=== PATIENT | male | born 1965 | race Caucasian/White ===

== ENCOUNTER → 2017-01-31 | Outpatient (CLI) | payer BC, OTHER ==
[~2017-01-31] MED LIST: ASPIR 8181 MG PO; BYSTOLIC 5 MG5 M1 PO; CENTRUM SILVER1 EAC4 PO; GLUCOPHAGE XR500 MG PO; LEVEMIR SUBQ; NOVOLOG100 UNIT/1 SUBQ; PRAVACHOL40 MG PO
== END ==
LOC: ULTRA 14:32
DX: Z01.818 Encounter for other preprocedural examination (principal)

== ENCOUNTER 2017-02-06 06:53 | Inpatient (IN) | payer BC, OTHER ==
[2017-01-31 13:45] LABS: URINE BILIRUBIN NEGATIVE (Negative); URINE BLOOD 1+ (Negative); URINE COLOR YELLOW; URINE GLUCOSE-RANDOM* NEGATIVE (Negative); URINE KETONES NEGATIVE (Negative); URINE LEUKOCYTES-REFLEX NEGATIVE (Negative); URINE PROTEIN (DIPSTICK) 2+ (Negative); URINE UROBILINOGEN 0.2 E.U./dl (0.2-1.0)
[2017-01-31 13:49] LABS: HEMATOCRIT 39.7 % (42.0-52.0); HEMOGLOBIN 13.9 gm/dL (14.0-18.0); MCH 30.7 pg (26.0-34.0); MCHC 35.1 g/dL (28.0-37.0); MCV 87.6 fL (80.0-100.0); RBC 4.53 mil/uL (4.50-6.00); RDW 13.1 % (10.5-14.5); WBC 9.8 thou/uL (4.0-11.0)
[2017-01-31 13:53] LABS: APTT 26.8 Seconds (24.5-32.8)
[2017-01-31 13:56] LABS: ALBUMIN 2.9 g/dL (3.4-5.0); CALCIUM 8.5 mg/dL (8.5-10.1); CREATININE 1.2 mg/dL (0.7-1.3); TOTAL BILIRUBIN 0.4 mg/dL (<0.1-1.0); TOTAL PROTEIN 6.6 g/dL (6.4-8.2)
[2017-01-31 13:58] LABS: CASTS None Seen /LPF (None Seen); CRYSTALS None Seen /LPF (None Seen); SQUAMOUS None Seen /LPF (0-3); URINE RBC None Seen /HPF (0-2); URINE WBC-REFLEX None Seen /HPF (0-5)
[2017-02-06] VITALS (11 sets, daily range): BP systolic 97–142; BP diastolic 57–89
[~2017-02-06] VITALS: Ht 182.9 cm; Wt 115.1 kg
--- NOTE | ~2017-02-06 | HC ---
[facility] [place] [address] CONSULTATION Name: NitinSASHAOMKAR ALDANA J Room #: 208-P [facility] IN ..#: [id number] Admission: 02/06/17 Attend Phys: Waldemar Gill MD Discharge: Date of : 63 Report #: [id number] THIS REPORT FOR: //name// CC: CARLENE Gill REASON FOR CONSULTATION: Elevated creatinine. REASON FOR ADMISSION: Status post endarterectomy. HISTORY OF PRESENT ILLNESS: This is a 51-year-old with past medical history of peripheral arterial disease. He underwent right internal carotid endarterectomy on February 06. He had some issues with left lower extremity weakness and was diagnosed by the Neurology to have a TIA. He has got an extensive past medical history including and not limiting to diabetes mellitus and hypertension. Postoperatively, the patient's creatinine continued to go up to a peak of 2.2. On presentation, his creatinine was 1.2. As it turned out that the patient has some urinary retention and his creatinine is on the trend down after an intermittent catheterization. It was also noted that the patient's blood pressure is on the low side with blood pressure readings down to 89/41. asked me to evaluate the patient due to the acute kidney injury. PAST MEDICAL HISTORY: 1. Diabetes mellitus. 2. Hypertension. 3. Peripheral arterial disease. 4. Status post endarterectomy. 5. Coronary artery disease. 6. TIA. MEDICATIONS: 1. Aspirin. 2. Atorvastatin. 3. Bystolic. 4. Famotidine. 5. Insulin. FAMILY HISTORY: Significant for diabetes mellitus and hypertension. SOCIAL HISTORY: Current smoker. No drug or alcohol abuse. ALLERGIES: No known drug allergies. REVIEW OF SYSTEMS: GENERAL: No fever or chills. CARDIOVASCULAR: No chest pain or palpitation. PULMONARY: No cough or hemoptysis. [facility] [address] [place] [address] CONSULTATION Name: OMKAR CAPONE Room #: 208-P [facility] IN [facility]#: [id number] Admission: 02/06/17 Attend Phys: Waldemar Gill MD Discharge: Date of : 63 Report #: [id number] GASTROINTESTINAL: No nausea or vomiting. GENITOURINARY: Urinary retention. SKIN: No rash or ulcerations. PHYSICAL EXAMINATION: GENERAL: He is alert, oriented, in no apparent distress. VITAL SIGNS: Blood pressure is 140/72. HEAD AND NECK: No jugular venous distention, no bruit, no thyromegaly. CHEST: Clear to auscultation bilaterally. CARDIOVASCULAR: No rub detected. ABDOMEN: Soft, nontender. LOWER EXTREMITIES: +1 edema. LABORATORY DATA: Reviewed. His creatinine is down to 1.7. Potassium is mildly elevated at 5.3. ASSESSMENT, IMPRESSION AND PLAN: 1. Acute kidney injury. 2. Hyperkalemia. 3. Mildly depressed sodium value. 4. Urinary retention. 5. The patient's acute kidney injury is all related to his retention. 6. He did have some low blood pressure readings and I will start on appropriate normal saline. 7. Urology had evaluated the patient. 8. Continue with the bladder scan. 9. P.r.n. intermittent catheterization. 10. Flomax. 11. Creatinine is on the trend down and it should continue to improve. <ELECTRONICALLY SIGNED> By: Greer Tom MD 02/10/17 0744 0726 0820 Greer Tom MD /nt
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
--- NOTE | ~2017-02-06 | EKG ---
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
--- NOTE | ~2017-02-06 | S ---
[facility] [place] [address] SURGICAL PATH RPT PROCEDURE Name: OMKAR CAPONE Room #: 208-P ADM IN M.R.#: [id number] Admission: 02/06/17 Date of : 63 Discharge: Report #: [id number] Path Case #: [id number] PATHOLOGY REPORT COLLECTION DATE: 02/06/2017 RECEIVED DATE: 02/07/2017 SUBMITTING PHYS: Dr. Waldemar Gill OTHER PHYS: Dr. Rocky Barrientos M.D. Dr. Eduardo Miller SPECIMEN(S) RECEIVED: A.Right carotid artery plaque * * * * * * * * * * * * FINAL DIAGNOSIS: "Right carotid artery plaque", endarterectomy: - Calcific atherosclerosis. (CLW:shirley; 02/08/2017) PATHOLOGIST: Amy Gabriel M.D. REPORT ELECTRONICALLY SIGNED BY: Amy Gabriel M.D. DATE/TIME: 02/08/2017 23:42 * * * * * * * * * * * * GROSS PATHOLOGY: The specimen is received in formalin, labeled "Omkar Capone and right carotid artery plaque", is a previously opened tubular segment measuring 3.0 x 0.6 cm in diameter. Upon further sectioning the lumen shows mcbride-white firm plaque with an hemorrhagic focus represents section in A1 after decalcification. (SWS; 02/07/2017) CLINICAL HISTORY: Carotid artery disease INITIAL CPT CODE(S): A; 58012, 61633 Professional services performed by [facility] at [facility] [address], [place] [address] Technical services performed by [facility] at [address] [place] [id number]. [facility] [address] [place] [address] SURGICAL PATH RPT PROCEDURE Name: OMKAR CAPONE Room #: 208-P ADM IN M.R.#: [id number] Admission: 02/06/17 Date of : 63 Discharge: Report #: [id number] Path Case #: [id number] [address] PHONE: [phone] DIRECTOR: Abner Grace M.D. * * * END OF REPORT * * *
--- NOTE | ~2017-02-06 | O ---
[facility] [place] [address] OPERATIVE REPORT Name: OMKAR CAPONE Room #: 150-5 [facility] IN ..#: [id number] Admission: 02/06/17 Attend Phys: Waldemar Gill MD Discharge: Date of : 63 Report #: [id number] THIS REPORT FOR: //name// CC: CARLENE Gill DATE OF SERVICE: 02/06/2017 PREOPERATIVE DIAGNOSIS: Right internal carotid artery stenosis, asymptomatic. FINAL DIAGNOSIS: Right internal carotid artery stenosis, asymptomatic. OPERATIVE PROCEDURE PERFORMED: Right internal carotid endarterectomy. SURGEON: Waldemar Gill MD ELECTRICAL RESEARCH ENGINEER: Rocky Barrientos MD ANESTHESIA: General. OPERATIVE INDICATIONS: The patient is a 51-year-old male who recently presented with evidence of coronary artery disease. The patient was identified as a candidate for coronary bypass grafting. Preoperative evaluation of carotid arteries demonstrated bilateral internal carotid artery stenoses, greater on the right than left and this was followed with angiography showing a significant stenosis on the right. The patient was brought to the operating room now for right internal carotid endarterectomy prior to planned coronary bypass grafting. OPERATIVE SUMMARY: The patient was brought into the operating room, placed on the OR table in supine position. After anesthesia was induced via the general endotracheal route and monitoring lines have been positioned, the patient was prepped and draped in sterile fashion with chlorhexidine. An oblique incision was made anterior to the sternocleidomastoid muscle. Dissection was carried down through the subcutaneous tissues. We ligated and divided the facial vein. We identified the contents of the carotid sheath and dissected free the common internal and external carotid arteries from surrounding tissue. We had to mobilize the hypoglossal nerve. We identified the marginal mandibular branch of the facial nerve and took care not to injure it, although we did have to retract it. Plaque extended up for some distance in this artery and we had to dissect high. We gave heparin at least 10,000 units IV, waited at least 3 minutes. The internal, then common, then external carotid arteries were clamped. We opened with the common carotid arteriotomy, extended up into the internal carotid artery past the most distal plaque. The plaque was dissected free from the surrounding wall. It was amputated proximally. Distally, there was good tapering. We performed an eversion endarterectomy of the external carotid artery. After the plaque was removed, we then debrided all loose fronds from [address] [address] OPERATIVE REPORT Name: OMKAR CAPONE Room #: 150-5 [facility] IN [facility].#: [id number] Admission: 02/06/17 Attend Phys: Waldemar Gill MD Discharge: Date of : 63 Report #: [id number] the vessel wall. This was performed under loupe magnification with irrigation. Once this was satisfactory, we closed the arteriotomy in a single layer without a patch using 6-0 Prolene suture. Prior to completing the closure, the shunt was removed. The site was flushed both retrograde and antegrade. It was irrigated with heparinized saline solution. We de-aired the site by releasing the clamp on the external carotid artery prior to completing the closure and then after the suture was secured, we securely tied. We released the clamp on the common carotid artery and then the internal carotid artery. No bleeding was encountered. A 100 mg of protamine was given to reverse the heparin. Doppler signals were excellent at the common internal and external carotid arteries. Once satisfactory hemostasis was achieved, the wound was closed in multiple layers with absorbable suture. The procedure completed, the patient was taken to the postanesthesia care unit. Neurologic examination is pending at the time of this dictation. <ELECTRONICALLY SIGNED> By: Waldemar Gill MD 02/06/17 1336 1240 1334 Waldemar Gill MD /nt
[2017-02-07] VITALS (16 sets, daily range): BP systolic 85–153; BP diastolic 41–77
[2017-02-07 05:16] LABS: HEMATOCRIT 35.5 % (42.0-52.0); HEMOGLOBIN 12.3 gm/dL (14.0-18.0); MCH 30.2 pg (26.0-34.0); MCHC 34.5 g/dL (28.0-37.0); MCV 87.6 fL (80.0-100.0); RBC 4.06 mil/uL (4.50-6.00); RDW 13.3 % (10.5-14.5); WBC 15.5 thou/uL (4.0-11.0)
[2017-02-07 05:24] LABS: CALCIUM 7.8 mg/dL (8.5-10.1); CREATININE 2.2 mg/dL (0.7-1.3); POTASSIUM 4.8 mmol/L (3.5-5.1)
[2017-02-07 10:15] LABS: CHOLESTEROL 113 mg/dL (<200); HDL CHOLESTEROL 36 mg/dL (>40); LDL CHOLESTEROL 52 mg/dL (<100); TC:HDL 3.1 Ratio (Not establshd); TRIGLYCERIDE 127 mg/dL (<150); VLDL 25 mg/dL (<40)
[2017-02-07 16:43] LABS: ABG SAMPLE TYPE ARTERIAL; BE(vivo) -4.3 mmol/L (-2 to +3); HCO3 19.6 mmol/L (22.0-26.0); O2(CT) 16.4 mL/dL (15.0-23.0); O2Hb 90.3 % (92.0-98.0); PCO2 32.5 mmHg (35.0-45.0); PO2 60.7 mmHg (80.0-100.0); pH 7.398 (7.360-7.450); sO2 91.6 % (92.0-98.0); tCO2 20.6 mmol/L (24.0-30.0)
[2017-02-07 16:44] LABS: STICK SITE R.RADIAL
[2017-02-08 03:47] VITALS: BP 153/85
[2017-02-08 04:24] LABS: CALCIUM 8.5 mg/dL (8.5-10.1); CREATININE 2.1 mg/dL (0.7-1.3); POTASSIUM 5.3 mmol/L (3.5-5.1)
[2017-02-08 08:37] VITALS: BP 153/78
[2017-02-08 14:17] VITALS: BP 140/67
[2017-02-08 19:54] VITALS: BP 154/74
[2017-02-08 23:58] VITALS: BP 142/67
[2017-02-09 03:33] VITALS: BP 142/72
[2017-02-09 04:30] LABS: HEMATOCRIT 37.2 % (42.0-52.0); HEMOGLOBIN 12.4 gm/dL (14.0-18.0); MCH 29.6 pg (26.0-34.0); MCHC 33.4 g/dL (28.0-37.0); MCV 88.7 fL (80.0-100.0); RBC 4.19 mil/uL (4.50-6.00); RDW 13.1 % (10.5-14.5); WBC 11.1 thou/uL (4.0-11.0)
[2017-02-09 04:35] LABS: CALCIUM 8.6 mg/dL (8.5-10.1); CREATININE 1.7 mg/dL (0.7-1.3); POTASSIUM 5.3 mmol/L (3.5-5.1)
[2017-02-09 08:30] VITALS: BP 156/86
[2017-02-09 12:15] VITALS: BP 158/76
[2017-02-09 17:40] VITALS: BP 147/76
[2017-02-09 19:47] VITALS: BP 144/83
[2017-02-09 23:57] VITALS: BP 147/82
[2017-02-10 04:09] VITALS: BP 166/95
[2017-02-10 05:12] LABS: ALBUMIN 3.1 g/dL (3.4-5.0); CALCIUM 8.6 mg/dL (8.5-10.1); CREATININE 1.7 mg/dL (0.7-1.3); PHOSPHORUS 3.8 mg/dL (2.5-4.9); POTASSIUM 5.5 mmol/L (3.5-5.1)
[2017-02-10 08:00] VITALS: BP 166/95
[2017-02-10 12:00] VITALS: BP 159/83
[2017-02-10 16:00] VITALS: BP 159/80
[2017-02-10 19:55] VITALS: BP 175/99
[2017-02-11 00:07] LABS: GLYCOHEMOGLOBIN (HGB A1C) 7.2 % (4.8-5.6)
[2017-02-11 04:14] VITALS: BP 169/93
[2017-02-11 04:53] LABS: ALBUMIN 2.9 g/dL (3.4-5.0); CALCIUM 8.6 mg/dL (8.5-10.1); CREATININE 1.5 mg/dL (0.7-1.3); POTASSIUM 5.1 mmol/L (3.5-5.1)
[2017-02-11 07:40] VITALS: BP 151/81
[2017-02-11 11:15] VITALS: BP 166/83
[2017-02-11] MEDS ORDERED: FLOMAX0.4 MG PO (11:45)
[2017-02-11] MEDS ORDERED: AUGMENTIN 875-1 EACH PO (11:45)
[2017-02-11] MEDS ORDERED: PANTOPRAZOLE SO40 M1 PO (11:45)
[2017-02-11] MEDS ORDERED: ASPIRIN325 PO (11:45)
[2017-02-11] MEDS ORDERED: ULTRA-LIGHT RO1 EACH (11:47)
[2017-02-11] MEDS ORDERED: SPIRIVA INH (12:22)
[2017-02-11 13:26] VITALS: BP 166/83
== END 2017-02-11 14:22 | disposition home health service (06) | DRG 38 ==
LOC: TBA 06:53 → PRE 07:55 → ICU 14:39 → PRE 14:52 → ICU 02-07 07:53 → 2N 02-07 18:26 → ENTRNSPT 02-11 14:06 → EDTRNSPTSTS 02-11 14:13 → 2N 02-11 14:22
PROVIDERS: Hospitalist; Internal Medicine Pulmonary Disease; Nurse Practitioner; Psychiatry & Neurology Neurology; Thoracic Surgery (Cardiothoracic Vascular Surgery)
PROC: 03CK0ZZ Extirpation of Matter from Right Internal Carotid Artery, Open Approach (ICD-10-PCS; principal; 2017-02-06)
DX: I63.131 Cerebral infarction due to embolism of right carotid artery (principal); N17.9 Acute kidney failure, unspecified; J44.0 Chronic obstructive pulmonary disease with (acute) lower respiratory infection; E11.51 Type 2 diabetes mellitus with diabetic peripheral angiopathy without gangrene; K21.9 Gastro-esophageal reflux disease without esophagitis; I25.10 Atherosclerotic heart disease of native coronary artery without angina pectoris; J20.9 Acute bronchitis, unspecified; N40.1 Benign prostatic hyperplasia with lower urinary tract symptoms; R33.8 Other retention of urine; H35.30 Unspecified macular degeneration; E11.65 Type 2 diabetes mellitus with hyperglycemia; E11.621 Type 2 diabetes mellitus with foot ulcer; F17.210 Nicotine dependence, cigarettes, uncomplicated; L97.519 Non-pressure chronic ulcer of other part of right foot with unspecified severity; I95.9 Hypotension, unspecified; E78.5 Hyperlipidemia, unspecified; Z95.820 Peripheral vascular angioplasty status with implants and grafts; Z89.421 Acquired absence of other right toe(s); Z79.84 Long term (current) use of oral hypoglycemic drugs; Z79.82 Long term (current) use of aspirin; Z79.4 Long term (current) use of insulin; Z79.899 Other long term (current) drug therapy; Z80.7 Family history of other malignant neoplasms of lymphoid, hematopoietic and related tissues; Z82.49 Family history of ischemic heart disease and other diseases of the circulatory system
CPT/HCPCS: 10081; 10204; 50010; 50101; 50386; 50417; 50455; 51301; 56524; 56526; 56528; 56534; 62110; 62900; 70005

== ENCOUNTER → 2020-04-25 | Outpatient (CLI) | payer OTHER ==
[~2020-04-25] MED LIST changes: +ASPIRIN325 PO; +AUGMENTIN 875-1 EACH PO; +FLOMAX0.4 MG PO; +PANTOPRAZOLE SO40 M1 PO; +SPIRIVA INH; +ULTRA-LIGHT RO1 EACH
== END ==
LOC: SJCVCIMAG 07:07
PROVIDERS: ATTEND Internal Medicine Cardiovascular Disease
DX: I65.23 Occlusion and stenosis of bilateral carotid arteries (principal); I70.203 Unspecified atherosclerosis of native arteries of extremities, bilateral legs; I77.9 Disorder of arteries and arterioles, unspecified; L97.411 Non-pressure chronic ulcer of right heel and midfoot limited to breakdown of skin; Z98.890 Other specified postprocedural states; Z87.891 Personal history of nicotine dependence

== ENCOUNTER → 2020-04-28 | Outpatient (CLI) | payer OTHER ==
[~2020-04-28] VITALS: Ht 182.9 cm; Wt 109.0 kg
[~2020-04-28] MED LIST changes: +CARVEDILOL12.5 MG PO; +FUROSEMIDE 40 M40 MG PO; +LISINOPRIL10 MG PO; +PLAVIX 75 MG TA75 MG PO
[2020-04-28 09:10] VITALS: BP 145/81
[2020-04-28 09:35] LABS: HEMATOCRIT 40.8 % (42.0-52.0); HEMOGLOBIN 13.6 gm/dL (14.0-18.0); MCH 29.7 pg (26.0-34.0); MCHC 33.2 g/dL (28.0-37.0); MCV 89.6 fL (80.0-100.0); RBC 4.56 mil/uL (4.50-6.00); RDW 14.1 % (10.5-14.5); WBC 7.8 thou/uL (4.0-11.0)
[2020-04-28 09:37] LABS: CALCIUM 9.2 mg/dL (8.5-10.1); CREATININE 2.1 mg/dL (0.7-1.3); POTASSIUM 4.7 mmol/L (3.5-5.1)
== END | disposition home or self-care (01) ==
LOC: CATH 07:38
PROVIDERS: ATTEND Nuclear Medicine Nuclear Cardiology
DX: I70.213 Atherosclerosis of native arteries of extremities with intermittent claudication, bilateral legs (principal); I70.1 Atherosclerosis of renal artery; I10 Essential (primary) hypertension; I25.10 Atherosclerotic heart disease of native coronary artery without angina pectoris; I25.2 Old myocardial infarction; E11.9 Type 2 diabetes mellitus without complications; E78.5 Hyperlipidemia, unspecified; J44.9 Chronic obstructive pulmonary disease, unspecified; K21.9 Gastro-esophageal reflux disease without esophagitis; Z95.1 Presence of aortocoronary bypass graft; Z98.890 Other specified postprocedural states; Z79.899 Other long term (current) drug therapy; Z79.82 Long term (current) use of aspirin; Z79.4 Long term (current) use of insulin; Z86.73 Personal history of transient ischemic attack (TIA), and cerebral infarction without residual deficits; Z87.891 Personal history of nicotine dependence; Z85.828 Personal history of other malignant neoplasm of skin

== ENCOUNTER → 2020-05-02 | Outpatient (CLI) | payer OTHER | LOC: SJCVCIMAG 08:03 | PROVIDERS: ATTEND Internal Medicine Cardiovascular Disease | DX: I44.7 Left bundle-branch block, unspecified (principal); I35.8 Other nonrheumatic aortic valve disorders; I13.0 Hypertensive heart and chronic kidney disease with heart failure and stage 1 through stage 4 chronic kidney disease, or unspecified chronic kidney disease; E11.22 Type 2 diabetes mellitus with diabetic chronic kidney disease; N18.9 Chronic kidney disease, unspecified; I50.9 Heart failure, unspecified; I25.10 Atherosclerotic heart disease of native coronary artery without angina pectoris; Z79.82 Long term (current) use of aspirin; Z79.899 Other long term (current) drug therapy; Z86.73 Personal history of transient ischemic attack (TIA), and cerebral infarction without residual deficits; Z87.891 Personal history of nicotine dependence ==

== ENCOUNTER → 2020-08-16 | Outpatient (CLI) | payer OTHER | LOC: SJCVCIMAG 07-27 09:48 | PROVIDERS: ATTEND Nuclear Medicine Nuclear Cardiology | DX: I70.203 Unspecified atherosclerosis of native arteries of extremities, bilateral legs (principal); M79.661 Pain in right lower leg; M79.662 Pain in left lower leg; Z95.820 Peripheral vascular angioplasty status with implants and grafts ==

== ENCOUNTER 2020-12-18 21:57 | Inpatient (IN) | payer OTHER ==
[~2020-12-18] VITALS: Ht 182.9 cm; Wt 112.0 kg
[~2020-12-18 21:57] MED LIST changes: -LEVEMIR SUBQ; +LEVEMIR100 UNIT/1 SUBQ
[2020-12-18] MEDS ORDERED: LIPITOR80 MG PO (22:19)
[2020-12-18] MEDS ORDERED: JARDIANCE10 MG PO (22:19)
[2020-12-18] MEDS ORDERED: SPIRIVA RESPIMAT4 G1 INH (22:19)
[2020-12-18] MEDS ORDERED: TRULICITY1.5 MG/0.5 SUBQ (22:20)
[2020-12-18] MEDS ORDERED: INVANZ1 GM IV (22:20)
[2020-12-18 22:21] VITALS: BP 201/88
[2020-12-18 22:29] LABS: ABSOLUTE NEUTROPHILS 9.6 thou/uL (1.4-8.2); BASOPHILS 1.2 % (0.0-2.0); EOSINOPHILS 0.1 % (0.0-3.0); HEMATOCRIT 35.7 % (42.0-52.0); HEMOGLOBIN 12.3 gm/dL (14.0-18.0); LYMPHOCYTES 13.6 % (24.0-44.0); MCHC 34.4 g/dL (28.0-37.0); MCV 90.1 fL (80.0-100.0); MONOCYTES 6.4 % (1.0-8.0); PLATELET COUNT 535 thou/uL (150-400); POLYS 78.7 % (36.0-66.0); RBC 3.96 mil/uL (4.50-6.00); RDW 13.6 % (10.5-14.5); WBC 12.2 thou/uL (4.0-11.0)
[2020-12-18 22:37] LABS: CALCIUM 8.9 mg/dL (8.5-10.1); POTASSIUM 4.8 mmol/L (3.5-5.1)
[2020-12-18 22:42] LABS: APTT 25.9 Seconds (24.5-32.8); INR 1.01
[2020-12-18 22:51] LABS: ALBUMIN 2.9 g/dL (3.4-5.0); TOTAL BILIRUBIN 0.6 mg/dL (0.2-1.0); TOTAL PROTEIN 7.9 g/dL (6.4-8.2)
[2020-12-19] VITALS (7 sets, daily range): BP systolic 124–198; BP diastolic 66–88
--- NOTE | 2020-12-19 07:55 | NUR ---
ASSUMED CARE OF PT AT 0430 FROM ED, PT IS A/O X 4. ASSESSMENT COMPLETED NOTED. PT VOMITED X 3, C/O STOMACH PAIN ECONOMICS LECTURER NOTIFIED, ORDERS RECIEVED AND INITIATED. PT CURRENTLY RESTING WELL. PICC LINE IN PLACE AND FLUSHES APPROPRIATELY. WILL CONTINUE TO WORK TOWARDS PT'S POC.
--- NOTE | 2020-12-19 19:46 | NUR ---
ASSUMED CARE AT 0700. PT A/O X 4, FLAT AFFECT TODAY. C/O PAIN TO UPPER ABDOMEN BURNING AND FULL. MIRALAX ORDER RECEIVED FOR PT PER REQUEST PRN. NO BM SINCE SAT PER PT. UP TO BESIDE TO USE URINAL TODAY. ADEQUATE UO. POOR APPETITE THROUGHOUT THE DAY. BG 68 THIS EVENING, JUICE GIVEN. VITALS STABLE THROUGHOUT THE DAY. SPOUSE VISITED THIS EVENING. REPORT GIVEN TO ESTEFANY RN FOR OPERATIONS COORDINATOR.
[2020-12-20 00:26] VITALS: BP 135/56
[2020-12-20 04:20] VITALS: BP 145/74
[2020-12-20 04:47] LABS: HEMATOCRIT 26.8 % (42.0-52.0); MCH 30.8 pg (26.0-34.0); MCHC 34.1 g/dL (28.0-37.0); MCV 90.5 fL (80.0-100.0); RBC 2.97 mil/uL (4.50-6.00); RDW 13.4 % (10.5-14.5); WBC 8.4 thou/uL (4.0-11.0)
[2020-12-20 04:50] LABS: HEMOGLOBIN 9.1 gm/dL (14.0-18.0)
[2020-12-20 05:00] LABS: CALCIUM 7.4 mg/dL (8.5-10.1); CREATININE 1.6 mg/dL (0.7-1.3); POTASSIUM 4.1 mmol/L (3.5-5.1)
[2020-12-20 08:00] VITALS: BP 160/71
--- NOTE | 2020-12-20 08:01 | NUR ---
ASSUMED CARE OF PT AT 1900, PT DENIES N/V AND PAIN AT THIS TIME. ASSESSMENT COMPLETED NOTED. WILL CONTINUE TO WORK TOWARDS PT'S POC.
--- NOTE | 2020-12-20 09:05 | HC ---
[facility] [place] [address] CONSULTATION Name: ESTELITAPAULETTE Room #: 201-P [facility] IN .R.#: [id number] Admission: 12/19/20 Attend Phys: Iraida Ayala MD Discharge: Date of : 63 Report #: [id number] THIS REPORT FOR: cc: [facility] - Clinic physician unknown [facility] - Clinic physician unknown Bryan Farrar MD ~ DATE OF SERVICE: 12/19/2020 ATTENDING PHYSICIAN: Iraida Ayala. REASON FOR EVALUATION: Surgical site infection, left lower extremity. HISTORY OF PRESENT ILLNESS: The patient examined. This is a 55-year-old gentleman with known history of longstanding diabetes mellitus that has been complicated by widespread vasculopathy including coronary artery disease, peripheral vascular disease, within the last 1 to 2 weeks has undergone a left femoral bypass surgery as well as a toe amputation of the great toe and metatarsal. Postoperative course has been complicated by increasing pain associated with the limb, more recently of redness. Notes not aware of fevers, although has had his chills. Appetite has been satisfactory. He was scheduled to have additional imaging done this morning; however, due to the severity of his symptoms, he reported he was found to have a surgical site infection with skin and soft tissue infection and cellulitis, extended to the inguinal site. Also had some nausea with emesis and loose stools. Evaluation noted negative coronavirus testing. Creatinine was up to 2.0, lactic acid 2.9 that in followup was 0.9. CT abdomen and pelvis, some inflammatory changes noted in the left inguinal site, felt to be postoperative in nature. Blood cultures collected at time of admission are sterile thus far. He was empirically started on combination therapy of Zosyn and vancomycin. ALLERGIES: None known. CURRENT MEDICATIONS: Include enoxaparin, insulin, vancomycin, aspirin, atorvastatin, clopidogrel, carvedilol, sucralfate, pantoprazole, dicyclomine, ipratropium inhaler, metoclopramide as needed, Zosyn, p.r.n. analgesics. PAST MEDICAL HISTORY: As described above, diabetes mellitus, insulin requiring, complicated by widespread vasculopathy; has known coronary artery disease, peripheral vascular disease, recent left femoral popliteal bypass, hyperlipidemia, left great toe amputation with hypertension. SOCIAL HISTORY: Former smoker, no ethanol, no illicit drug use. FAMILY HISTORY: Noncontributory. REVIEW OF SYSTEMS: As above. [address] [address] CONSULTATION Name: OMKAR CAPONE Room #: 201-P [facility] IN ..#: [id number] Admission: 12/19/20 Attend Phys: Iraida Ayala MD Discharge: Date of : 63 Report #: [id number] PHYSICAL EXAMINATION: GENERAL: Appears somewhat chronically ill appearing. He is lethargic, although he is cooperative, seems to be lucid; in tmuv-xy-jmyhcogs distress. VITAL SIGNS: Temperature 97.8, pulse 82, respirations 20, blood pressure 198/86. SKIN: Warm, dry. No rashes. HEENT: Normocephalic. Extraocular muscles intact. NECK: Supple. LUNGS: Diminished breath sounds, otherwise clear. HEART: Regular. I do not appreciate a murmur. ABDOMEN: Mildly obese, somewhat firm, nontender. EXTREMITIES: Left lower extremity has an incision at the leg, into the thigh medially. It is approximated with mehran. There is a moderate degree of surface inflammation noted. There is no overt drainage, purulent or otherwise. He has got a wound VAC in place over the medial aspect of the foot. GENITOURINARY AND RECTAL: Deferred. LABORATORY DATA: Cultures sterile thus far. Lactic acid most recently 0.9. Electrolytes; sodium 139, potassium 4.8, chloride 102, bicarbonate is 25, anion gap of 12, BUN and creatinine 25 and 2.0, glucose of 264, total bilirubin of 0.6. LFTs unremarkable. Albumin of 2.9, total protein of 17.9. Estimated GFR of 35. Coronavirus testing was negative. CBC; white count of 12.2, H and H 12.3 and 35.7, platelets of 535. IMAGING: CT as noted above. Venous Doppler showed no evidence of deep venous thrombosis. ASSESSMENT AND PLAN: Surgical site infection involving the left lower extremity site of previous left femoral popliteal bypass with great toe ray amputation; had been discharged on parenteral therapy; sounds as if may be polymicrobial ____ certainly could be staph, strep etiology as well. Agree with the vancomycin. We will try to obtain records. Continue wound care as prescribed. Follow up with vascular surgery. We will add incentive spirometry. He remains somewhat tenuous. Continue to monitor expectantly. <ELECTRONICALLY SIGNED> By: Bryan Farrar MD 12/20/20904 4 34 Bryan Farrar MD /nt
--- NOTE | 2020-12-20 09:41 | NUR ---
55-year-old male with a history of diabetes, coronary disease status post PCI, and severe peripheral arterial disease status post right femoral bypass and recent left femoral bypass 1-1/2 weeks prior performed at [place] who presents the emergency department on 12-18-20 with worsening pain, nausea, and vomiting. Per Admission assessments patient noted as vaccinated x2 in Jun and July with Moderna and per ED record negative on ID now testing. Patient was admitted with Sepsis secondary to Left leg cellulitis and placed on IV ABT's. Also seen by interventional cardiology for Peripheral arterial disease along with wound care. Patient also has a wound vac. The patient is followed by Dr. Olmstead for Vascular Surgery, Dr. Kurtz for Cardiology and Dr. Naidu for Vascular surgery. The patient list his spouse Jania at [phone] as his next of kin and lives in a home with her. Per the record the patient is listed as A&O x4 and also per record currently working. Pending therapy orders and patient's plan of care from the MD's; CM will follow the patient for discharge planning needs.
--- NOTE | 2020-12-20 11:38 | NUR ---
pt up in bed, call light with in reach, requested pain meds from doc r/t lle pain, pt in no distress.
[2020-12-20 16:00] VITALS: BP 147/65
--- NOTE | 2020-12-20 18:48 | NUR ---
pt up in bed, call light in reach, no distress.
[2020-12-20 19:06] VITALS: BP 141/57
[2020-12-21 03:59] VITALS: BP 137/59
[2020-12-21 07:27] VITALS: BP 164/72
--- NOTE | 2020-12-21 07:34 | NUR ---
ASSUMED CARE OF PT AT 1900, PT C/O PAIN IN BILAT LOWER EXTREMITIES AND LEFT GROIN. MEDICATION GIVEN WITH RESOLUTION. PT DENIES N/V THIS SHIFT, WILL CONTINUE TO WORK TOWARDS POC.
--- NOTE | 2020-12-21 08:31 | HC ---
[facility] [place] [address] CONSULTATION Name: OMKAR CAPONE Room #: 201-P ADM IN M.R.#: [id number] Admission: 12/19/20 Attend Phys: Cruz Norman MD Discharge: Date of : 63 Report #: [id number] THIS REPORT FOR: cc: [facility] - Clinic physician unknown [facility] - Clinic physician unknown Reginald Rausch MD ~ DATE OF SERVICE: 12/19/2020 CHIEF COMPLAINT: Diabetic ulcers to the right foot. Surgical wounds to the left foot. HISTORY OF PRESENT ILLNESS: This is a 55-year-old male patient with a history of diabetes mellitus and peripheral vascular disease, who has been followed by Dr. Kurtz and Dr. Fowler here at [facility], but has also been followed by the wound care physician at [facility] as well as vascular surgery at [facility]. 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 He is currently using topical Iodoflex to the wound base. He did sustain an open fracture to his left great toe and was admitted at [facility] in mid November and underwent a left great toe amputation. He was found to have a high-grade SFA stenosis and underwent a fem-pop bypass. He has had increasing pain in his left thigh and swelling and redness in his left foot along the incision lines. He did have his surgery at [facility]. He was seen in the Emergency Department at [facility] last Saturday, but has chosen to be admitted here due to familiarity with cardiology as well as interventional radiology. PAST MEDICAL HISTORY: Significant for history of peripheral arterial disease detailed above, hyperlipidemia, type 2 diabetes mellitus, fracture of the left great toe and the recent vascular bypass procedure. More specifically, on 12/07, he underwent a left iliofemoral endarterectomy, left femoral to posterior tibial bypass with saphenous vein graft, left foot debridement with resection of the first metatarsal head. He has currently a wound VAC in place on the left side. He has been using Iodoflex on the right. ALLERGIES: No known drug allergies. MEDICATIONS: Include Lasix, Plavix, carvedilol, insulin, lisinopril, Spiriva, Lipitor, Jardiance, Trulicity, Invanz, Zosyn and fentanyl. ALLERGIES: No known drug allergies. SOCIAL HISTORY: The patient is a former smoker. Denies tobacco addict. Denies alcohol use. He is . His is present at the bedside. REVIEW OF SYSTEMS: [address] [address] CONSULTATION Name: OMKAR CAPONE Room #: 201-P [facility] IN .R.#: [id number] Admission: 12/19/20 Attend Phys: Cruz Norman MD Discharge: Date of : 63 Report #: [id number] CONSTITUTIONAL: The patient denies fever, chills or weight loss. NEUROLOGICAL: The patient denies focal weakness, numbness or tingling, but does have peripheral neuropathy. EYES: The patient denies visual changes, redness or drainage. ENT: The patient denies earache, nasal drainage or sore throat. CARDIOVASCULAR: The patient denies chest pain, palpitations or diaphoresis. PULMONARY: The patient denies cough or shortness of breath. GASTROINTESTINAL: The patient denies nausea, vomiting, diarrhea or abdominal pain. ORTHOPEDIC: The patient complains of some pain and redness involving the surgical sites involving the left leg. He has some swelling and pain in the left groin. Others systems in a 14-point review of systems are negative. PHYSICAL EXAMINATION: VITAL SIGNS: At this time include temperature 36.7, pulse 72, respiratory rate 18, blood pressure 133/66. GENERAL: This is a somewhat chronically ill-appearing male who appears to be in no obvious distress. HEENT: Head normocephalic. Nose and throat clear. NECK: Supple. LUNGS: Clear. ABDOMEN: Soft. EXTREMITIES: Examination of the left groin demonstrates an area that is a little bit tender and indurated. There is no redness noted. The incision line area is well intact. Lower extremity demonstrates surgical incisions on the medial aspect of the left leg. There is moderate erythema surrounding the surgical incision sites. He has a surgical wound to the left foot. There is a wound VAC in place. The patient does not wish for me to remove it at this moment until we have a replacement VAC. Examination of the right foot demonstrates a plantar ulcer in the mid foot with what appears to be some prominence of the plantar aspect of the mid foot that would be possibly consistent with Charcot type deformity. NEUROLOGIC: The patient is alert and oriented. LABORATORY DATA: Sodium 139, potassium 4.8, chloride 102, CO2 of 25, BUN 25, creatinine 2.0, glucose is 264. Albumin is 2.9. White blood cell count is 12.2 with a hemoglobin of 12.3. CLINICAL IMPRESSION: 1. Diabetic neuropathic ulcer, plantar aspect, right foot. 2. Charcot type deformity to the right foot. 3. Type 2 diabetes mellitus with peripheral neuropathy. 4. Severe peripheral arterial disease, status post femoral to mid posterior [facility] [address] [place] [address] CONSULTATION Name: OMKAR CAPONE Room #: 201-P [facility] IN [facility]#: [id number] Admission: 12/19/20 Attend Phys: Cruz Norman MD Discharge: Date of : 63 Report #: [id number] tibial artery bypass in 2014, left iliofemoral endarterectomy, left femoral to posterior tibial bypass with saphenous vein graft, left foot debridement and resection of first metatarsal head and left great toe amputation on 12/07/[address] Olmstead at [facility]. 5. Cardiomyopathy. RECOMMENDATIONS: At this point in time, I have informed the patient that we do not have Iodoflex available, was addressing option here at the hospital. We will recommend silver alginate and a border foam to the plantar foot for now. The patient's has requested that we use Iodoflex if she brings in the patient's supply. I am agreeable to this and we will consider changing his orders once we have the material at the bedside. On the left side, we will need to change the wound VAC. We will plan to do so tomorrow, to which he is agreeable. He does have currently a portable VAC with a monitoring analyst and there is a good seal. To the surgical incision lines I think that these can be left open to air. He does require antibiotic therapy at present. With regard to the left groin, there is no suggestion of hematoma or pseudoaneurysm based on the CT studies performed upon admission. I think observation of this area would be appropriate. Do not anticipate any sort of drainage or procedure to open this. If this were to be increasingly become painful and swollen, I think additional imaging may be appropriate and I think evaluation by either his surgeon or vascular surgery here would also be appropriate. He will need ongoing nutritional support to maximize wound healing and maintain glycemic control. I do appreciate being asked to see him in consultation. <ELECTRONICALLY SIGNED> By: Reginald Rausch MD 12/21/20 0831 1607 0056 Reginald Rausch MD /nt
--- NOTE | 2020-12-21 13:34 | NUR ---
MET WITH PATIENT ABOUT OT EVAL AND PT DID NOT FEEL HE NEEDED IT, NOR DID HE WANT IT. NO OT EVAL WAS DONE
[2020-12-21 14:55] LABS: HEMATOCRIT 29.3 % (42.0-52.0)
[2020-12-21 15:20] VITALS: BP 180/75
--- NOTE | 2020-12-21 15:23 | NUR ---
Met with patient who recent dc from [facility]. He admits with infection/cellulitis. Patient dc from [facility] where he rec femoral artery bypass and ampution of toe. Patient dc home from [facility] with [facility] health care and [facility] home infusion (iv ertepenem) and home wound vac. Patients services are auth through the [place]. Patient reports lives with and son in home. All needs on one level. Has a walker for home. Updated home health care and infusion company of admission and clinical. [facility] following.
[2020-12-21 19:54] VITALS: BP 148/67
[2020-12-22 03:15] VITALS: BP 154/55
--- NOTE | 2020-12-22 04:18 | NUR ---
SLEPT MOST OF SHIFT. UP TO COMODE NEEDED. DENIES COMPLAINTS OF PAIN. WOUND VAC REMAINS IN PLACE TO LEFT FOOT. WORKING ON GOALS AND PLAN OF CARE FOR NOC. CONTINUE TO ELIN GAMBOA.
[2020-12-22 07:38] VITALS: BP 147/74
[2020-12-22 10:34] LABS: CALCIUM 8.4 mg/dL (8.5-10.1); CREATININE 1.6 mg/dL (0.7-1.3); POTASSIUM 4.4 mmol/L (3.5-5.1)
--- NOTE | 2020-12-22 13:08 | NUR ---
Nerissa and [facility] updated. DC anticipated tomorrow. Awaiting final iv atb orders. Keerthi trinidad Transitional RN from [place] called requesting clinical and final orders in order for them to authorize. They will need all of these as early as possible today or in the am or they may not be able to authorize until next week. Will ask ID for orders today. Keerthi MEJIA RN [phone] cell and fax [phone].
[2020-12-22 15:26] VITALS: BP 163/65
[2020-12-22 19:44] VITALS: BP 147/60
--- NOTE | 2020-12-22 20:04 | NUR ---
PT IS AXOX4, PLEASANT; C/O PAIN IN LLE, BUT TOLERATING IT WELL. VSS, AFEBRILE, SR ON THE MONITOR. PT ON ABX THERAPY FOR SEPSIS CELLULITIS. LEFT LEG HAS KEISHA ON MEDIAL SIDE, WITH WOUND VAC ATTACHED TO LEFT GREAT TOE SITE, SUCTION SET AT 125MMHG. DR LOYD CONSULTED, DR SEALS CONSULTED, PT/OT CONSULTED, CASE MGMT CONSULTED. POC IS TO CONTINUE ABX THERAPY WITH POSS D/C ON 12/23 WITH HOME HEALTH. FALL RISK ASSESSED LOW PT CONTINUES TO IMPROVE IN MOBILITY; UP AD MARITZA TO BSC. LOW FALL PRECAUTIONS IN PLACE. NO CONCERNS AT THIS TIME.
[2020-12-23 03:40] VITALS: BP 157/67
--- NOTE | 2020-12-23 04:40 | NUR ---
SLEPT MOST OF SHIFT. UP TO COMODE AND SIDE OF BED AD MARITZA WITH STEADY GAIT. WOUND VAC IN PLACE TO LEFT FOOT. DENIES NEED FOR PAIN MEDICATION, WORKING ON GOALS AND PLAN OF CARE FOR NOC. PROGRESSING TOWARDS GOALS FOR HOME WITH HH TODAY. CONTINUE TO ASSES CLOSELY.
[2020-12-23 07:00] VITALS: BP 146/65
[2020-12-23 09:48] VITALS: BP 146/65
--- NOTE | 2020-12-23 09:53 | NUR ---
Call rec'd from [facility] Flores. They were able to get [facility] as [facility] will be going home on the same iv medication. [facility] can see the pt tomorrow. Cm to fax final orders to both parties. Pt's to bring in home wound vac to switch out. Ana watkins will call the pt about his medication delievery and supplies.
[2020-12-23] MEDS ORDERED: MINOCYCLINE 5050 M1 PO (12:20)
[2020-12-23] MEDS ORDERED: CARAFATE 1 GM TA1 G1 PO (12:20)
[2020-12-23] MEDS ORDERED: LISINOPRIL10 MG PO (12:20)
[2020-12-23] MEDS ORDERED: PROTONIX 20 MG20 M1 PO (12:20)
[2020-12-23] MEDS ORDERED: HYDROCODON-ACE1 EAC7 PO (12:20)
[2020-12-23] MEDS ORDERED: BENTYL 10 MG CA10 M1 PO (12:20)
[2020-12-23 12:41] VITALS: BP 146/65
--- NOTE | 2020-12-23 15:00 | NUR ---
ASSUMED CARE SHIFT CHANGE. VSS. DENIES PAIN. O2 SATS WNL RA. WOUND VAC CARE DONE BY WOUND RN. HOOKED UP TO PORTABLE. DC ORDERS. DISCUSSED WITH PT. COMMUNICATES UNDETSTANDING. TELE REMOVED. BELONGINGS PACKED. SON PICKED UP PT, LEFT UNIT WITH ALL BELONGINGS.
== END 2020-12-23 14:25 | disposition home health service (06) | DRG 862 ==
LOC: ER 21:57 → EROBS 12-19 03:17 → 2N 12-19 03:17
PROVIDERS: Hospitalist; Nurse Practitioner; Nurse Practitioner Family; Student in an Organized Health Care Education/Training Program; ADMIT Hospitalist; ATTEND Hospitalist
DX: T81.49XA Infection following a procedure, other surgical site, initial encounter (principal); A41.9 Sepsis, unspecified organism; N17.0 Acute kidney failure with tubular necrosis; L03.116 Cellulitis of left lower limb; E44.0 Moderate protein-calorie malnutrition; E11.621 Type 2 diabetes mellitus with foot ulcer; L97.519 Non-pressure chronic ulcer of other part of right foot with unspecified severity; I25.10 Atherosclerotic heart disease of native coronary artery without angina pectoris; E11.51 Type 2 diabetes mellitus with diabetic peripheral angiopathy without gangrene; I10 Essential (primary) hypertension; G89.18 Other acute postprocedural pain; E78.5 Hyperlipidemia, unspecified; B99.8 Other infectious disease; I25.5 Ischemic cardiomyopathy; Y83.8 Other surgical procedures as the cause of abnormal reaction of the patient, or of later complication, without mention of misadventure at the time of the procedure; S91.102A Unspecified open wound of left great toe without damage to nail, initial encounter; X58.XXXA Exposure to other specified factors, initial encounter; E66.9 Obesity, unspecified; D64.9 Anemia, unspecified; E11.649 Type 2 diabetes mellitus with hypoglycemia without coma; Z20.822 Contact with and (suspected) exposure to COVID-19; E11.42 Type 2 diabetes mellitus with diabetic polyneuropathy; Z89.412 Acquired absence of left great toe; Y92.89 Other specified places as the place of occurrence of the external cause; Z79.82 Long term (current) use of aspirin; Z85.828 Personal history of other malignant neoplasm of skin; Z79.899 Other long term (current) drug therapy; Z87.891 Personal history of nicotine dependence; Y93.89 Activity, other specified; Y99.8 Other external cause status; Z68.33 Body mass index [BMI] 33.0-33.9, adult
CPT/HCPCS: 10081

== ENCOUNTER 2020-12-29 19:16 | Emergency (ER) | payer OTHER ==
[~2020-12-29] VITALS: Ht 182.9 cm; Wt 108.9 kg
[~2020-12-29 19:16] MED LIST changes: +BENTYL 10 MG CA10 M1 PO; +CARAFATE 1 GM TA1 G1 PO; +HYDROCODON-ACE1 EAC7 PO; +INVANZ1 GM IV; +JARDIANCE10 MG PO; +LIPITOR80 MG PO; +MINOCYCLINE 5050 M1 PO; +PROTONIX 20 MG20 M1 PO; +SPIRIVA RESPIMAT4 G1 INH; +TRULICITY1.5 MG/0.5 SUBQ
[2020-12-29 20:03] LABS: BASOPHILS 0.4 % (0.0-2.0); EOSINOPHILS 3.3 % (0.0-3.0); HEMATOCRIT 34.6 % (42.0-52.0); HEMOGLOBIN 12.1 gm/dL (14.0-18.0); LYMPHOCYTES 10.7 % (24.0-44.0); MCH 32.2 pg (26.0-34.0); MCV 91.8 fL (80.0-100.0); MONOCYTES 8.8 % (1.0-8.0); PLATELET COUNT 251 thou/uL (150-400); POLYS 76.8 % (36.0-66.0); RBC 3.77 mil/uL (4.50-6.00); RDW 14.4 % (10.5-14.5)
[2020-12-29 20:17] LABS: ANION GAP 10 mmol/L (7-16); BUN 23 mg/dL (7-18); CHLORIDE 109 mmol/L (98-107); CO2 25 mmol/L (21-32); CREATININE 1.7 mg/dL (0.7-1.3); GLUCOSE 61 mg/dL (74-106); POTASSIUM 3.6 mmol/L (3.5-5.1); SODIUM 144 mmol/L (136-145)
[2020-12-29 20:29] LABS: SGOT 16 U/L (15-37); SGPT 20 U/L (16-63); TOTAL BILIRUBIN 0.4 mg/dL (0.2-1.0); TOTAL PROTEIN 7.3 g/dL (6.4-8.2); TROPONIN-I <0.06 ng/mL (<0.06)
[2020-12-29 22:55] VITALS: BP 153/69
--- NOTE | 2020-12-30 13:59 | EKG ---
[facility] [place] [address] ELECTROCARDIOGRAM REPORT Name: ESTELITAOMKAR Martinez 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 : 1965 Requested By: Vangie Carrizales Order Number: [id number] MD: Guero Bob Measurements Intervals [place] Rate: 66 P: -11 HI: 197 QRS: -13 QRSD: 124 T: 160 QT: 396 QTc: 415 Interpretive Statements Sinus rhythm LVH with IVCD and secondary repol abnrm Inferior infarct, old Compared to ECG 02/08/2017 21:01:42 Intraventricular conduction delay now present Left ventricular hypertrophy now present Early repolarization now present Left bundle-branch block no longer present Electronically Signed On 12-30-2020 13:59:38 CDT by Guero Bob [email or web address] <ELECTRONICALLY SIGNED> By: Guero Bob MD 12/30/20 1359 30 30 Guero Bob MD /EPI
== END 2020-12-29 22:55 | disposition home or self-care (01) ==
LOC: ER 19:16
PROVIDERS: Emergency Medicine
DX: E11.649 Type 2 diabetes mellitus with hypoglycemia without coma (principal); I73.9 Peripheral vascular disease, unspecified; I10 Essential (primary) hypertension; E78.5 Hyperlipidemia, unspecified; Z98.890 Other specified postprocedural states; Z79.82 Long term (current) use of aspirin; Z79.891 Long term (current) use of opiate analgesic; Z79.4 Long term (current) use of insulin; Z79.899 Other long term (current) drug therapy

== ENCOUNTER → 2021-04-04 | Outpatient (CLI) | payer OTHER | LOC: SJCVCIMAG 08:39 | PROVIDERS: ATTEND Internal Medicine Cardiovascular Disease | DX: T82.858A Stenosis of other vascular prosthetic devices, implants and grafts, initial encounter (principal); I70.203 Unspecified atherosclerosis of native arteries of extremities, bilateral legs; M79.604 Pain in right leg; M79.605 Pain in left leg ==

== ENCOUNTER → 2021-04-25 | Outpatient (CLI) | payer OTHER ==
[~2021-04-25] MED LIST changes: +DIAZEPAM 5 MG5 M1 PO
[2021-04-25 07:35] VITALS: BP 170/79
[2021-04-25 08:04] LABS: HEMATOCRIT 40.1 % (42.0-52.0); HEMOGLOBIN 13.4 gm/dL (14.0-18.0); MCH 30.4 pg (26.0-34.0); MCHC 33.3 g/dL (28.0-37.0); MCV 91.1 fL (80.0-100.0); RBC 4.4 mil/uL (4.50-6.00); WBC 7.4 thou/uL (4.0-11.0)
[2021-04-25 08:26] LABS: CREATININE 1.5 mg/dL (0.7-1.3); POTASSIUM 4.1 mmol/L (3.5-5.1)
--- NOTE | 2021-04-25 18:18 | CATHLAB ---
[facility] [place] [address] INVASIVE PROCEDURE REPORT Name: OMKAR CAPONE Room #: PRE DEREK Cee#: [id number] Admission: Attend Phys: Omkar Bradshaw MD Discharge: Date of : 63 Report #: [id number] THIS REPORT FOR: cc: Yaya Gastelum MD, Daniel W. MD Mancuso, Gerald M. MD [facility] ~ APPROVED REPORT Study performed: 04/25/2021 09:49:01 Patient Details Patient Status: Out-Patient Room #: The patient is a 55 year-old male Event Personnel Jose Kurtz Drapery Seamstress, Mariangel Colvin RTR Monitor, Valerie Rico RTR, ARELY WallsubSahil Dexter RN ems driver Performed Art Access - R femoral artery* Left Heart Cath Coronaries, Bypass Grafts [id number] LHCCORCABG Hemostasis w/ Mynx 45333 Initial Mod Sed Same Phys/QHP Gr5y 437008 49629 Mod Sed Same Phys/QHP Ea 296856 Procedure Narrative The was infiltrated with 1% Lidocaine subcutaneous anesthesia. A SHEATH BRITE-TIP 6F X 11CM ([id number]) sheath was inserted into the RFA^. Coronary angiography was performed using coronary diagnostic catheters. The right coronary system was accessed and visualized with a JR4 catheter. The left coronary system was accessed and visualized with a JL4 catheter. The left ventricle was accessed and visualized with a STRAIGHT PIGTAIL catheter. Left ventriculogram was performed in 30 degree projection. Closure device was deployed with a Fr MYNX CONTROL 6F/7F L#[id number]. The patient tolerated the procedure well and there were no complications associated with the procedure. There was no hematoma. Intraoperative Conscious Sedation Sedation start time: 8:32 Case end Time: 10:43 Fentanyl 125 mcg Versed 2.0 mg Contrast, sedation, and fluoro totals are a combined total of a lower extremity runoff and a heart cath. [facility] [place] [address] INVASIVE PROCEDURE REPORT Name: OMKAR CAPONE Room #: [facility] [id number] Admission: Attend Phys: Omkar Bradshaw, Discharge: Date of : 63 Report #: [id number] Fluoro Time: 13.80 minutes Dose: DAP 17968.20 cGycm2 1684 mGy Contrast Type and Amount: Visipaque 171 ml Hemodynamics The aortic pressure is 160/71 mmHg with a mean of 102 mmHg. The left ventricular pressure is 180/2 mmHg with a mean of mmHg. The left ventricular end diastolic pressure is 11 mmHg. PCI Technique Lesion Percutaneous coronary intervention was performed on the Unspecified. Conclusion #1 Normal left ventricular size with inferior basilar hypokinesis EF 45 to 50% range. #2 the left main essentially subtotally occluded with no significant left-sided filling. #3 there is a large widely patent DIETRICH graft. Appears to be a ISABEL jump to a OM system the DIETRICH fills the LAD diagonal briskly. No occlusive disease noted in these grafts with mild disease in the [place] vessels. Some collateral filling to a distal OM or PDA. #4 dominant right coronary proximally occluded #5 there is an SVG to the PDA. Anastomotic lesion of 50% range feeling diffusely diseased PDA. Recommendations and plan: Continue aggressive risk factor modification. No indication for coronary intervention. Peripheral intervention per Dr. Bradshaw's note. <ELECTRONICALLY SIGNED> By: Jose Kurtz MD, FACC 04/25/211816 16 16 Jose Kurtz MD, FACC /INF
== END | disposition home or self-care (01) ==
LOC: CATH 06:25
PROVIDERS: Internal Medicine Cardiovascular Disease; ATTEND Nuclear Medicine Nuclear Cardiology
DX: I25.10 Atherosclerotic heart disease of native coronary artery without angina pectoris (principal); I70.248 Atherosclerosis of native arteries of left leg with ulceration of other part of lower leg; L97.929 Non-pressure chronic ulcer of unspecified part of left lower leg with unspecified severity; I70.1 Atherosclerosis of renal artery; I10 Essential (primary) hypertension; J44.9 Chronic obstructive pulmonary disease, unspecified; E11.621 Type 2 diabetes mellitus with foot ulcer; E78.5 Hyperlipidemia, unspecified; Z95.1 Presence of aortocoronary bypass graft; Z98.890 Other specified postprocedural states; Z79.899 Other long term (current) drug therapy; Z87.891 Personal history of nicotine dependence; Z79.4 Long term (current) use of insulin; Z85.828 Personal history of other malignant neoplasm of skin; Z86.73 Personal history of transient ischemic attack (TIA), and cerebral infarction without residual deficits